=== PATIENT | male | born 1950 | race Caucasian/White ===

== ENCOUNTER 2016-04-26 21:39 | Emergency (ER) | payer MEDICARE, OTHER ==
[2016-04-26 22:13] LABS: BASOPHIL 0.4 % (0-2); EOSINOPHIL 0.9 % (0-7); HCT 44.9 % (42.0-52.0); HGB 16.3 g/dl (13.2-18.0); LYMPHOCYTE 23.3 % (15-48); MCH 31.4 pg (25.0-31.0); MCHC 36.3 g/dL (32.0-36.0); MCV 86.5 fL (78.0-100.0); MONOCYTE 10.3 % (0-12); MPV 11.1 fL (6.0-9.5); NEUTROPHIL 65.1 % (41-80); PLT 190 K/uL (150-400); RBC 5.19 M/uL (4.70-6.00); RDW 12.9 % (11.5-14.0); WBC 11.9 K/uL (4.0-10.5)
[2016-04-26 22:19] LABS: INR 0.97 (0.9-1.2); PROTHROMBIN TIME 12.5 SECONDS (11.7-14.0)
[2016-04-26 22:20] LABS: PTT 29.2 SECONDS (23.2-31.4)
[2016-04-26 22:24] LABS: ALBUMIN 3.8 g/dL (3.4-4.8); BILIRUBIN - TOTAL 0.8 mg/dL (0.1-1.0); CREATININE 1.3 mg/dL (0.7-1.2); GLOBULIN (CALCULATION) 2.9 g/dL (2.2-4.2); POTASSIUM 4.1 mmol/L (3.5-5.1); TOTAL PROTEIN 6.7 g/dL (6.4-8.3)
[2016-04-26 22:26] LABS: CKMB 1.73 ng/mL (0.97-4.94); TROPONIN T < 0.010 ng/mL
== END 2016-04-27 03:53 | disposition other institution (70) ==
LOC: FER 21:39
PROVIDERS: Emergency Medicine Emergency Medical Services
DX: R55 Syncope and collapse (principal); I25.2 Old myocardial infarction; I10 Essential (primary) hypertension; E11.9 Type 2 diabetes mellitus without complications; Z79.84 Long term (current) use of oral hypoglycemic drugs; Z79.82 Long term (current) use of aspirin; Z79.899 Other long term (current) drug therapy; Z95.1 Presence of aortocoronary bypass graft
CPT/HCPCS: 36415; 70450; 71010; 80053; 82550; 82553; 84484; 85025; 85610; 85730; 93005; J2060; J2405